=== PATIENT | male | born 1985 | race African-American/Black ===

== ENCOUNTER 2018-12-09 18:31 | Emergency (ER) | payer OTHER ==
[2018-12-09 18:44] VITALS: BP 133/76; PULSE 81; TEMP 97.9; BMI 27.1
--- NOTE | 2018-12-09 18:53 | PDOC ---
History of Present Illness - General Chief Complaint: Pain, Acute Stated Complaint: SHOULDER PAIN Time Seen by Provider: 12/09/18 18:46 - History of Present Illness Initial Comments: 12/09/18 18:52 33-year-old male without comorbidities presents for evaluation of left shoulder pain. 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 Past History - Past Medical History Allergies/Adverse Reactions: Allergies Allergy/AdvReac Type Severity Reaction Status Date / Time No Known Allergies Allergy Verified 12/09/18 18:44 Home Medications: Ambulatory Orders Cyclobenzaprine HCl [Flexeril] 5 mg PO TID #30 tablet 03/27/15 Ibuprofen [Motrin -] 800 mg PO TID #30 tablet 03/27/15 COPD: No - Immunization History Immunization Up to Date: Yes - Suicide/Smoking/Psychosocial Hx Smoking History: Never smoked Have you smoked in the past 12 months: No Information on smoking cessation initiated: No Hx Alcohol Use: No Drug/Substance Use Hx: No Review of Systems - Review of Systems Musculoskeletal: Yes: Joint Pain *Physical Exam - Vital Signs Last Vital Signs Temp Pulse Resp BP Pulse Ox 97.9 F 81 16 133/76 100 12/09/18 18:35 12/09/18 18:35 12/09/18 18:35 12/09/18 18:35 12/09/18 18:35 - Physical Exam Comments: 12/09/18 18:52 Left shoulder skin color and temperature are normal. Range of motion is full and nonpainful. 5 out of 5 strength without gross sensory motor deficits mildly positive impingement maneuvers tenderness over the before meals joint neurovascular intact ED Treatment Course - RADIOLOGY Radiology Studies Ordered: Category Date Time Status SHOULDER-LEFT [RAD] Stat Radiology 12/09/18 18:48 Ordered Medical Decision Making - Medical Decision Making 12/09/18 19:03 no fx trauma or destructive process, suspect grade 1 AC seperation f/u with ortho *DC/Admit/Observation/Transfer Diagnosis at time of Disposition: Shoulder separation - Discharge Dispostion Disposition: HOME Condition at time of disposition: Stable Decision to Admit order: No - Referrals Referrals: Nasir Varela DO [Staff Physician] - - Patient Instructions Printed Discharge Instructions: DI for AC Joint Separation, AC Joint Separation , Shoulder Sprain Additional Instructions: Tylenol and Motrin as directed for pain. Return to the emergency room for worsening symptoms. Follow-up with orthopedic surgery without fail in 1-2 days for further evaluation and treatment options. - Post Discharge Activity Forms/Work/School Notes: Back to Work
== END 2018-12-09 19:00 | disposition home or self-care (01) ==
LOC: JERFT 18:31
DX: M25.512 Pain in left shoulder (principal); W18.39XA Other fall on same level, initial encounter; Y93.89 Activity, other specified; Y92.410 Unspecified street and highway as the place of occurrence of the external cause; S43.005A Unspecified dislocation of left shoulder joint, initial encounter; X58.XXXA Exposure to other specified factors, initial encounter; Y93.9 Activity, unspecified; Y92.9 Unspecified place or not applicable; Y99.0 Civilian activity done for income or pay
CPT/HCPCS: 73030-TC-LT-FY; 99281-25

== ENCOUNTER 2022-05-27 09:40 | Emergency (ER) | payer OTHER ==
[2022-05-27 10:10] VITALS: BP 132/78; PULSE 59; RESP 17; TEMP 97.8; BMI 43.0
== END 2022-05-27 12:15 | disposition home or self-care (01) ==
LOC: JERFT 09:40
DX: S93.402A Sprain of unspecified ligament of left ankle, initial encounter (principal); X50.0XXA Overexertion from strenuous movement or load, initial encounter
CPT/HCPCS: 73610-TC-LT-FY; 73630-TC-LT; 99283-25

== ENCOUNTER 2022-11-22 16:52 | Emergency (ER) | payer OTHER ==
[2022-11-22 17:01] VITALS: BP 132/82; PULSE 86; RESP 20; TEMP 98.4; BMI 26.2
[2022-11-22] MEDS ORDERED: CYCLOBENZAPRINE HCL 10 MG TABLET (FP) PO ONE (17:38)
[2022-11-22] MEDS ORDERED: ACETAMINOPHEN 500 MG TABLET (FP) PO ONE (17:38)
[2022-11-22] MEDS ORDERED: LIDOCAINE 5% TOPICAL PATCH TP ONE (17:38)
[2022-11-22] MEDS ORDERED: ACETAMINOPHEN 500 MG TABLET (FP) ONE (17:53)
[2022-11-22] MEDS ORDERED: CYCLOBENZAPRINE HCL 10 MG TABLET (FP) ONE (17:53)
[2022-11-22] MEDS ORDERED: LIDOCAINE 5% TOPICAL PATCH ONE (17:53)
[2022-11-22] MEDS ORDERED: LIDOCAINE PATCH REMOVAL MC SCH (22:00)
== END 2022-11-22 18:36 | disposition home or self-care (01) ==
LOC: JERFT 16:52
DX: M54.6 Pain in thoracic spine (principal); S39.012A Strain of muscle, fascia and tendon of lower back, initial encounter; X58.XXXA Exposure to other specified factors, initial encounter
CPT/HCPCS: 99283-25